=== PATIENT | female | born 1950 | race Caucasian/White ===

== ENCOUNTER → 2016-11-04 | Outpatient (REF) ==
[~2016-11-04] MED LIST: ASPIRIN 81M81 MG/TA2 PO; CALCIUM CARBON500 M1 PO; FORTAMET500 MG PO; GLUCOPHAGE500 MG/TAB PO; HYZAAR 12.5 MG-1 TAB PO; LEVOTHYROXIN0.075 MG PO; MULTIPLE VITAMI1 CAP PO; MVI; OGEN 0.6250.75 MG PO; OGEN 0.625MG0.625 MG PO; PLAVIX 75MG TAB75 MG PO; SYNTHROID0.075 MG/T PO
== END ==
LOC: ZLAB.WCH 13:16
DX: Z01.89 Encounter for other specified special examinations (principal)

== ENCOUNTER → 2017-05-27 | Outpatient (REF) | LOC: ZLAB.WCH 20:44 | DX: Z01.89 Encounter for other specified special examinations (principal) ==

== ENCOUNTER → 2017-08-18 | Outpatient (CLI) | payer MEDICARE, OTHER | LOC: MC.RAD 11:25 | DX: Z12.31 Encounter for screening mammogram for malignant neoplasm of breast (principal); M85.89 Other specified disorders of bone density and structure, multiple sites ==

== ENCOUNTER → 2017-09-10 | Outpatient (REF) | LOC: ZLAB.WCH 17:59 | DX: Z01.89 Encounter for other specified special examinations (principal) ==

== ENCOUNTER → 2017-10-20 | Outpatient (REF) | LOC: ZLAB.WCH 17:50 | DX: Z01.89 Encounter for other specified special examinations (principal) ==

== ENCOUNTER → 2017-12-30 | Outpatient (REF) | LOC: ZLAB.WCH 14:03 | DX: Z01.89 Encounter for other specified special examinations (principal) ==

== ENCOUNTER → 2018-06-08 | Outpatient (REF) | LOC: ZLAB.WCH 16:38 | DX: Z01.89 Encounter for other specified special examinations (principal) ==

== ENCOUNTER → 2018-11-12 | Outpatient (REF) | LOC: ZLAB.WCH 14:15 | DX: Z01.89 Encounter for other specified special examinations (principal) ==

== ENCOUNTER 2021-10-10 10:30 | Outpatient (RCR) | payer MEDICARE, OTHER | END 2021-10-11 | disposition still patient (30) | LOC: MKS.ESL.PT | DX: G62.9 Polyneuropathy, unspecified (principal) ==

== ENCOUNTER 2021-10-10 11:00 | Outpatient (RCR) | payer SELFPAY | END 2021-10-11 | LOC: MKS.ESL.PT | DX: G62.9 Polyneuropathy, unspecified (principal) ==

== ENCOUNTER 2021-10-17 10:00 | Outpatient (RCR) | payer MEDICARE, OTHER | END 2021-11-10 | disposition home or self-care (01) | LOC: MKS.ESL.PT | DX: G62.9 Polyneuropathy, unspecified (principal) ==

== ENCOUNTER 2021-10-17 10:15 | Outpatient (RCR) | payer SELFPAY | END 2021-11-10 | disposition home or self-care (01) | LOC: MKS.ESL.PT | DX: G62.9 Polyneuropathy, unspecified (principal) ==

== ENCOUNTER → 2024-04-08 | Outpatient (CLI) | payer MEDICARE | LOC: COL.VAS 10:36 | DX: I63.9 Cerebral infarction, unspecified (principal); I51.7 Cardiomegaly ==